=== PATIENT | male | born 1945 | race Caucasian/White ===

== ENCOUNTER 2019-05-06 10:58 | Emergency (ER) | payer MEDICARE, OTHER ==
[2019-05-06 11:11] VITALS: BP 175/74
--- NOTE | 2019-05-06 11:28 | ED Physician Documentation ---
PD HPI URI - Stated complaint Stated Complaint: COUGH/COLD - Chief complaint Chief Complaint: [facility] PD PAST MEDICAL HISTORY - Past Medical History Cardiovascular: Hypertension Respiratory: None Endocrine/Autoimmune: None GI: Other : None HEENT: None Psych: None Musculoskeletal: Osteoarthritis, Chronic back pain Derm: None - Past Surgical History General: Colonoscopy Ortho: Shoulder arthroplasty, Other - Present Medications Home Medications: Ambulatory Orders Medication Instructions Recorded Confirmed traMADol [Ultram] 50 mg PO Q4-6H PRN 05/09/13 06/02/15 Propranolol HCl 20 mg PO TID 06/02/15 06/02/15 Benzonatate [Tessalon Perle] 100 - 200 mg PO TID PRN #30 capsule 05/06/19 Promethazine HCl/Codeine 5 ml PO Q6HR #120 syrup 05/06/19 [Prometh-Codein 6.25-10 mg/5 ml] - Allergies Allergies/Adverse Reactions: Allergies Allergy/AdvReac Type Severity Reaction Status Date / Time No Known Drug Allergies Allergy Verified 05/06/19 11:07 Results - Vitals Vitals: Vital Signs - 24 hr 05/06/19 11:07 Temperature 36.8 C Heart Rate 70 Respiratory 18 Rate Blood Pressure 175/74 H O2 Saturation 95 Oxygen O2 Source Room air PD MEDICAL DECISION MAKING - ED course Complexity details: d/w patient ED course: Discussed with patient that this appears to be a viral infection and he already feels like he is improving. I see no indication for antibiotics. Recommend symptomatic treatment and have prescribed Tessalon Perles that he can use during the day and Phenergan with codeine to use at night so that he can get some rest. Follow-up if he is not improving over another 5 to 7 days or his symptoms are worsening. He states understanding. Departure - Departure Disposition: 01 Home, Self Care Clinical Impression: URI (upper respiratory infection) Qualifiers: URI type: unspecified viral URI Qualified Code(s): J06.9 - Acute upper respiratory infection, unspecified Condition: Good Instructions: ED Upper Resp Infec No Abx Tx Follow-Up: Lindy Martinez MD [Primary Care Provider] - Prescriptions: Promethazine HCl/Codeine [Prometh-Codein 6.25-10 mg/5 ml] 5 ml PO Q6HR #120 syrup Benzonatate [Tessalon Perle] 100 - 200 mg PO TID PRN #30 capsule PRN Reason: Cough Comments: Rest and drink plenty of liquids. Consider using a [place] pot or sinus rinse. Use the Tessalon pearls for coughing throughout the day if needed up to every 8 hours. May use the Phenergan with codeine at nighttime to help suppress the cough so you can get some rest. If you are not improving in another 5 to 7 days you should be reevaluated or if you develop a fever, worsening cough with shortness of breath or other problems arise. Discharge Date/Time: 05/06/19 12:16
== END 2019-05-06 12:16 | disposition home or self-care (01) ==
LOC: ED 10:58
DX: J06.9 Acute upper respiratory infection, unspecified (principal); I10 Essential (primary) hypertension
CPT/HCPCS: 99282; 99283

== ENCOUNTER 2020-11-05 12:22 | Outpatient (CLI) | payer MEDICARE, OTHER ==
--- NOTE | 2020-11-05 13:16 | CT Report ---
PROCEDURE: Sinuses INDICATIONS: CHRONIC PANSINUSITIS TECHNIQUE: Noncontrast 3.0 mm axial images acquired from the frontal sinuses to the mid-sella, with coronal and sagittal reformats. For radiation dose reduction, the following was used: automated exposure control , adjustment of mA and/or kV according to patient size. COMPARISON: None. FINDINGS: Image quality: Excellent. Maxillary Sinuses: No bony remodeling or destruction. There is mild mucosal thickening seen within t he inferior right maxillary sinus. Ethmoid Air Cells: No bony remodeling or destruction. Mild mucosal thickening is seen within the ant erior ethmoid air cells, left worse than right. Sphenoid Sinuses: No bony remodeling or destruction. Sinuses are clear. Frontal Sinuses: No bony remodeling or destruction. Mild to moderate mucosal thickening is seen with in the inferomedial frontal sinuses, left worse than right. Ostiomeatal Complexes: Ostiomeatal complexes are patent, yet they are constitutionally narrowed, wit h bilateral Tona cells. Miscellaneous: Visualized intra-orbital contents are normal. No reginald bullosa. There is minimal ri ghtward nasal septal deviation. IMPRESSION: Mild, multifocal paranasal sinus disease. Narrowed ostiomeatal complexes, with bilateral Tona cells. Minimal rightward nasal septal deviation. Reviewed by: Hieu Steiner MD on 11/05/2020 12:14 PM DONG Approved by: Hieu Steiner MD on 11/05/2020 12:14 PM DONG Station ID: [id number]
== END 2020-11-05 12:23 | disposition home or self-care (01) ==
LOC: DI 12:22
PROVIDERS: ATTEND Otolaryngology
DX: J32.4 Chronic pansinusitis (principal); R09.82 Postnasal drip; R51.9 Headache, unspecified